=== PATIENT | female | born 1955 | race Caucasian/White ===

== ENCOUNTER 2019-09-05 12:18 | Inpatient (IN) | payer BC ==
[~2019-09-05] VITALS: Ht 162.6 cm; Wt 76.4 kg
[2019-09-05] MEDS ORDERED: BISACODYL 10 MG SUPP PR PRN (13:00)
[2019-09-05] MEDS ORDERED: ONDANSETRON ODT 4 MG PO PRN (13:00)
[2019-09-05 13:57] VITALS: BP 145/80
[2019-09-05] MEDS: SERTRALINE 50MG TABLET PO SCH (15:37)
[2019-09-05 16:48] LABS: ANION GAP 9 mmol/L (5-15); CALCIUM 9.9 mg/dL (8.5-10.1); CHLORIDE 104 mmol/L (98-107); CREATININE 1.19 mg/dL (0.55-1.02)
[2019-09-05 17:15] LABS: CHOL/HDL RATIO 2.9; FREE T4 (FREE THYROXINE) 2.13 ng/dL (0.76-1.46); LDL/HDL RATIO 1.4 (0.5-3.0)
[2019-09-05] MEDS: INSULIN LISPRO 100 UNITS/ML, PEN SQ-INSULIN SCH ×2 (17:17→21:11)
[2019-09-05 19:54] VITALS: BP 145/80
[2019-09-06 05:59] LABS: BASOPHILS # (AUTO) 0.02 x10^3/uL (0-0.1); BASOPHILS % (AUTO) 0 % (0-1); EOSINOPHILS # (AUTO) 0.09 x10^3/uL (0-0.4); EOSINOPHILS % (AUTO) 2 % (1-7); LYMPHOCYTES # (AUTO) 1.31 x10^3/uL (1-3.4); LYMPHOCYTES % (AUTO) 24 % (22-44); MD NO; MEAN CORPUSCULAR HEMOGLOBIN 31.2 pg (27.0-34.8); MEAN CORPUSCULAR VOLUME 94.5 fL (80-100); MEAN PLATELET VOLUME 9.5 fL (7.4-10.4); MONOCYTES # (AUTO) 0.43 x10^3/uL (0.2-0.8); MONOCYTES % (AUTO) 8 % (2-9); NEUTROPHILS % (AUTO) 66 % (42-75); PLATELET COUNT 167 x10^3/uL (130-400); RED BLOOD COUNT 4.46 x10^6/uL (3.82-5.3)
[2019-09-06 06:04] LABS: ANION GAP 5 mmol/L (5-15); CALCIUM 9.7 mg/dL (8.5-10.1); CHLORIDE 106 mmol/L (98-107)
[2019-09-06] MEDS: ASPIRIN 81 MG TABLET EC PO SCH (06:04)
[2019-09-06 07:37] VITALS: BP 179/76
[2019-09-06] MEDS: INSULIN LISPRO 100 UNITS/ML, PEN SQ-INSULIN SCH ×4 (08:03→21:01)
[2019-09-06] MEDS: SERTRALINE 50MG TABLET PO SCH (08:24)
[2019-09-06] MEDS ORDERED: GABA-826 PO (18:48)
[2019-09-06] MEDS ORDERED: CLON2TAB9 PO (18:48)
[2019-09-06 19:15] VITALS: BP 151/85
[2019-09-07 00:17] LABS: MICROSCOPIC AUTO
[2019-09-07 00:19] LABS: CULTURE INDICATED? YES
[2019-09-07] MEDS: ASPIRIN 81 MG TABLET EC PO SCH (05:33)
[2019-09-07 07:00] VITALS: BP 160/82
[2019-09-07] MEDS: INSULIN LISPRO 100 UNITS/ML, PEN SQ-INSULIN SCH ×4 (07:40→20:39)
[2019-09-07] MEDS: SERTRALINE 50MG TABLET PO SCH (08:15)
[2019-09-07 19:15] VITALS: BP 169/81
[2019-09-08] MEDS: ASPIRIN 81 MG TABLET EC PO SCH (06:18)
[2019-09-08] MEDS: INSULIN LISPRO 100 UNITS/ML, PEN SQ-INSULIN SCH ×4 (07:37→22:19)
[2019-09-08 07:42] VITALS: BP 180/84
[2019-09-08 07:57] VITALS: BP 176/81
[2019-09-08] MEDS ORDERED: GUAN3TAB3 PO (08:20)
[2019-09-08] MEDS ORDERED: SIMV20TA3 PO (08:20)
[2019-09-08] MEDS ORDERED: DIVA500T17 PO (08:20)
[2019-09-08] MEDS ORDERED: LEVO125T PO (08:20)
[2019-09-08] MEDS ORDERED: OMEP20CA14 PO (08:20)
[2019-09-08] MEDS ORDERED: CARV6.25 PO (08:20)
[2019-09-08] MEDS ORDERED: RISP1TAB3 PO (08:20)
[2019-09-08] MEDS ORDERED: LISI40TA PO (08:20)
[2019-09-08] MEDS ORDERED: CLOP75TA PO (08:20)
[2019-09-08] MEDS ORDERED: AMLO10TA8 PO (08:20)
[2019-09-08] MEDS ORDERED: LANS30CA PO (08:20)
[2019-09-08] MEDS: SERTRALINE 50MG TABLET PO SCH (09:03)
[2019-09-08] MEDS: CARVEDILOL 6.25 MG TABLET PO SCH ×2 (09:03→17:39)
[2019-09-08] MEDS: CLOPIDOGREL 75 MG TABLET PO SCH (09:04)
[2019-09-08] MEDS: LISINOPRIL 20 MG TABLET PO SCH (09:04)
[2019-09-08 11:30] VITALS: BP 128/73
[2019-09-08] MEDS ORDERED: LORazepam 1MG TABLET ONE ×2 (17:31→17:34)
[2019-09-08 17:41] VITALS: BP 160/85
[2019-09-08] MEDS ORDERED: LORazepam 1MG TABLET PO ONE (18:00)
[2019-09-08 19:32] VITALS: BP 152/77
[2019-09-08 19:48] VITALS: BP 161/72
[2019-09-08] MEDS ORDERED: RISPERIDONE 1 MG TABLET PO SCH (21:00)
[2019-09-08] MEDS: DIVALPROEX 500 MG TAB.ER.24H PO SCH (22:17)
[2019-09-08] MEDS: SIMVASTATIN 20 MG TABLET PO SCH (22:17)
[2019-09-08] MEDS: INSULIN GLARGINE 100 UNITS/ML, PEN SQ-INSULIN SCH (22:19)
[2019-09-09] MEDS: ASPIRIN 81 MG TABLET EC PO SCH (06:06)
[2019-09-09] MEDS: LEVOTHYROXINE 125 MCG TABLET PO SCH (06:06)
[2019-09-09 07:33] VITALS: BP 180/74
[2019-09-09] MEDS: INSULIN LISPRO 100 UNITS/ML, PEN SQ-INSULIN SCH ×4 (07:47→20:07)
[2019-09-09] MEDS: CARVEDILOL 6.25 MG TABLET PO SCH ×2 (08:23→17:12)
[2019-09-09] MEDS: CLOPIDOGREL 75 MG TABLET PO SCH (08:23)
[2019-09-09] MEDS: SERTRALINE 50MG TABLET PO SCH (08:24)
[2019-09-09] MEDS: LISINOPRIL 20 MG TABLET PO SCH (08:24)
[2019-09-09 16:58] VITALS: BP 135/83
[2019-09-09 19:42] VITALS: BP 149/79
[2019-09-09] MEDS: INSULIN GLARGINE 100 UNITS/ML, PEN SQ-INSULIN SCH (20:08)
[2019-09-09] MEDS: SIMVASTATIN 20 MG TABLET PO SCH (20:57)
[2019-09-09] MEDS: DIVALPROEX 500 MG TAB.ER.24H PO SCH (20:57)
[2019-09-09] MEDS: RISPERIDONE 1 MG TABLET PO SCH (20:57)
[2019-09-10] MEDS: ASPIRIN 81 MG TABLET EC PO SCH (06:07)
[2019-09-10] MEDS: LEVOTHYROXINE 125 MCG TABLET PO SCH (06:07)
[2019-09-10] MEDS: INSULIN LISPRO 100 UNITS/ML, PEN SQ-INSULIN SCH ×4 (07:00→21:30)
[2019-09-10 07:24] VITALS: BP 140/77
[2019-09-10] MEDS: LISINOPRIL 20 MG TABLET PO SCH (08:40)
[2019-09-10] MEDS: CARVEDILOL 6.25 MG TABLET PO SCH ×2 (08:40→17:34)
[2019-09-10] MEDS: SERTRALINE 50MG TABLET PO SCH (08:40)
[2019-09-10] MEDS: CLOPIDOGREL 75 MG TABLET PO SCH (08:40)
[2019-09-10 17:30] VITALS: BP 154/73
[2019-09-10 19:15] VITALS: BP 121/75
[2019-09-10] MEDS: DIVALPROEX 500 MG TAB.ER.24H PO SCH (21:27)
[2019-09-10] MEDS: RISPERIDONE 1 MG TABLET PO SCH (21:28)
[2019-09-10] MEDS: SIMVASTATIN 20 MG TABLET PO SCH (21:29)
[2019-09-10] MEDS: INSULIN GLARGINE 100 UNITS/ML, PEN SQ-INSULIN SCH (21:32)
[2019-09-11] MEDS: ASPIRIN 81 MG TABLET EC PO SCH (05:40)
[2019-09-11] MEDS: LEVOTHYROXINE 125 MCG TABLET PO SCH (05:40)
[2019-09-11 07:18] VITALS: BP 154/66
[2019-09-11] MEDS: INSULIN LISPRO 100 UNITS/ML, PEN SQ-INSULIN SCH ×4 (08:35→21:35)
[2019-09-11] MEDS: CARVEDILOL 6.25 MG TABLET PO SCH ×2 (08:37→17:23)
[2019-09-11] MEDS: SERTRALINE 50MG TABLET PO SCH ×2 (08:37→08:43)
[2019-09-11] MEDS: CLOPIDOGREL 75 MG TABLET PO SCH (08:38)
[2019-09-11] MEDS: LISINOPRIL 20 MG TABLET PO SCH (08:38)
[2019-09-11 17:22] VITALS: BP 127/80
[2019-09-11 19:43] VITALS: BP 132/80
[2019-09-11] MEDS: DIVALPROEX 500 MG TAB.ER.24H PO SCH (21:33)
[2019-09-11] MEDS: SIMVASTATIN 20 MG TABLET PO SCH (21:33)
[2019-09-11] MEDS: RISPERIDONE 1 MG TABLET PO SCH (21:33)
[2019-09-11] MEDS: INSULIN GLARGINE 100 UNITS/ML, PEN SQ-INSULIN SCH (21:35)
[2019-09-12] MEDS: LEVOTHYROXINE 125 MCG TABLET PO SCH (05:39)
[2019-09-12] MEDS: ASPIRIN 81 MG TABLET EC PO SCH (05:39)
[2019-09-12 07:48] VITALS: BP 138/75
[2019-09-12] MEDS: INSULIN LISPRO 100 UNITS/ML, PEN SQ-INSULIN SCH ×4 (07:55→20:48)
[2019-09-12] MEDS: CLOPIDOGREL 75 MG TABLET PO SCH (08:09)
[2019-09-12] MEDS: CARVEDILOL 6.25 MG TABLET PO SCH ×2 (08:09→17:19)
[2019-09-12] MEDS: LISINOPRIL 20 MG TABLET PO SCH (08:10)
[2019-09-12] MEDS: SERTRALINE 50MG TABLET PO SCH (08:10)
[2019-09-12 20:06] VITALS: BP 138/79
[2019-09-12] MEDS: ACETAMINOPHEN 325 MG TABLET PO PRN (20:45)
[2019-09-12] MEDS: RISPERIDONE 1 MG TABLET PO SCH (20:46)
[2019-09-12] MEDS: DIVALPROEX 500 MG TAB.ER.24H PO SCH (20:46)
[2019-09-12] MEDS: SIMVASTATIN 20 MG TABLET PO SCH (20:46)
[2019-09-12] MEDS: INSULIN GLARGINE 100 UNITS/ML, PEN SQ-INSULIN SCH (20:47)
[2019-09-12] MEDS: DOCUSATE 100 MG CAPSULE PO PRN (20:47)
[2019-09-13] MEDS: LEVOTHYROXINE 125 MCG TABLET PO SCH (06:12)
[2019-09-13] MEDS: ASPIRIN 81 MG TABLET EC PO SCH (06:12)
[2019-09-13 07:35] VITALS: BP 172/74
[2019-09-13] MEDS: SERTRALINE 50MG TABLET PO SCH ×2 (08:21→08:25)
[2019-09-13] MEDS: LISINOPRIL 20 MG TABLET PO SCH (08:22)
[2019-09-13] MEDS: CLOPIDOGREL 75 MG TABLET PO SCH (08:22)
[2019-09-13] MEDS: CARVEDILOL 6.25 MG TABLET PO SCH ×2 (08:23→18:11)
[2019-09-13] MEDS: INSULIN LISPRO 100 UNITS/ML, PEN SQ-INSULIN SCH ×4 (08:25→21:03)
[2019-09-13] MEDS ORDERED: NITROFURANTOIN (MACROBID) 100 MG CAPSULE ONE (14:15)
[2019-09-13] MEDS: NITROFURANTOIN (MACROBID) 100 MG CAPSULE PO SCH ×2 (14:22→21:02)
[2019-09-13 18:09] VITALS: BP 160/80
[2019-09-13 19:53] VITALS: BP 140/88
[2019-09-13] MEDS ORDERED: INSULIN GLARGINE 100 UNITS/ML, PEN SQ-INSULIN SCH (21:00)
[2019-09-13] MEDS: SIMVASTATIN 20 MG TABLET PO SCH (21:02)
[2019-09-13] MEDS: DIVALPROEX 500 MG TAB.ER.24H PO SCH (21:02)
[2019-09-13] MEDS: RISPERIDONE 1 MG TABLET PO SCH (21:02)
[2019-09-14] MEDS: LEVOTHYROXINE 125 MCG TABLET PO SCH (05:13)
[2019-09-14] MEDS: ASPIRIN 81 MG TABLET EC PO SCH (05:13)
[2019-09-14 07:21] VITALS: BP 176/85
[2019-09-14] MEDS: CLOPIDOGREL 75 MG TABLET PO SCH (08:14)
[2019-09-14] MEDS: LISINOPRIL 20 MG TABLET PO SCH (08:15)
[2019-09-14] MEDS: CARVEDILOL 6.25 MG TABLET PO SCH ×2 (08:15→17:39)
[2019-09-14] MEDS: NITROFURANTOIN (MACROBID) 100 MG CAPSULE PO SCH ×2 (08:16→20:29)
[2019-09-14] MEDS: INSULIN LISPRO 100 UNITS/ML, PEN SQ-INSULIN SCH ×4 (08:17→20:51)
[2019-09-14] MEDS: SERTRALINE 50MG TABLET PO SCH (08:20)
[2019-09-14] MEDS: POLYETHYLENE GLYCOL 17 GM PACKET PO PRN (10:09)
[2019-09-14] MEDS: LACTOBACILLUS CHEW TABLET PO SCH ×2 (15:00→20:29)
[2019-09-14 19:00] VITALS: BP 143/83
[2019-09-14] MEDS: SIMVASTATIN 20 MG TABLET PO SCH (20:30)
[2019-09-14] MEDS: RISPERIDONE 1 MG TABLET PO SCH (20:30)
[2019-09-14] MEDS: INSULIN GLARGINE 100 UNITS/ML, PEN SQ-INSULIN SCH (20:51)
[2019-09-14] MEDS ORDERED: DIVALPROEX 500 MG TAB.ER.24H PO SCH (21:00)
[2019-09-15] MEDS: ASPIRIN 81 MG TABLET EC PO SCH (06:36)
[2019-09-15] MEDS: CARVEDILOL 6.25 MG TABLET PO SCH ×2 (06:37→17:52)
[2019-09-15] MEDS: LEVOTHYROXINE 125 MCG TABLET PO SCH (06:37)
[2019-09-15 06:53] LABS: ALBUMIN 3.2 g/dL (3.4-5.0); BILIRUBIN, DIRECT 0.1 mg/dL (0.1-0.2)
[2019-09-15 06:57] LABS: BILIRUBIN,INDIRECT 0.2 mg/dL (0.0-2.0); BILIRUBIN,TOTAL 0.3 mg/dL (0.2-1.0); TOTAL PROTEIN 6.6 g/dL (6.4-8.2)
[2019-09-15] MEDS: INSULIN LISPRO 100 UNITS/ML, PEN SQ-INSULIN SCH ×4 (07:00→20:50)
[2019-09-15 07:09] VITALS: BP 138/60
[2019-09-15] MEDS: LACTOBACILLUS CHEW TABLET PO SCH ×3 (10:37→20:47)
[2019-09-15] MEDS: LISINOPRIL 20 MG TABLET PO SCH (10:37)
[2019-09-15] MEDS: NITROFURANTOIN (MACROBID) 100 MG CAPSULE PO SCH ×2 (10:37→20:47)
[2019-09-15] MEDS: SERTRALINE 50MG TABLET PO SCH (10:38)
[2019-09-15 10:51] VITALS: BP 180/93
[2019-09-15] MEDS: CLOPIDOGREL 75 MG TABLET PO SCH (10:52)
[2019-09-15] MEDS: ACETAMINOPHEN 325 MG TABLET PO PRN ×2 (11:00→20:47)
[2019-09-15] MEDS: DOCUSATE 100 MG CAPSULE PO PRN (11:00)
[2019-09-15] MEDS: CALCIUM CARBONATE 500 MG TAB.CHEW PO PRN ×2 (15:23→20:46)
[2019-09-15 17:51] VITALS: BP 147/77
[2019-09-15 19:12] VITALS: BP 174/89
[2019-09-15] MEDS: SIMVASTATIN 20 MG TABLET PO SCH (20:47)
[2019-09-15] MEDS: RISPERIDONE 1 MG TABLET PO SCH (20:47)
[2019-09-15] MEDS: INSULIN GLARGINE 100 UNITS/ML, PEN SQ-INSULIN SCH (20:49)
[2019-09-16] MEDS: LEVOTHYROXINE 125 MCG TABLET PO SCH (05:21)
[2019-09-16] MEDS: ASPIRIN 81 MG TABLET EC PO SCH (05:21)
[2019-09-16] MEDS: INSULIN LISPRO 100 UNITS/ML, PEN SQ-INSULIN SCH ×4 (07:00→21:27)
[2019-09-16 07:32] VITALS: BP 156/84
[2019-09-16] MEDS: ACETAMINOPHEN 325 MG TABLET PO PRN (08:44)
[2019-09-16] MEDS: SERTRALINE 50MG TABLET PO SCH (08:44)
[2019-09-16] MEDS: LACTOBACILLUS CHEW TABLET PO SCH ×3 (08:44→21:25)
[2019-09-16] MEDS: CARVEDILOL 6.25 MG TABLET PO SCH ×2 (08:44→17:22)
[2019-09-16] MEDS: CLOPIDOGREL 75 MG TABLET PO SCH (08:44)
[2019-09-16] MEDS: NITROFURANTOIN (MACROBID) 100 MG CAPSULE PO SCH ×2 (08:45→21:25)
[2019-09-16] MEDS: LISINOPRIL 20 MG TABLET PO SCH (08:45)
[2019-09-16 17:22] VITALS: BP 178/91
[2019-09-16 19:33] VITALS: BP 156/82
[2019-09-16] MEDS: SIMVASTATIN 20 MG TABLET PO SCH (21:25)
[2019-09-16] MEDS: RISPERIDONE 1 MG TABLET PO SCH (21:25)
[2019-09-16] MEDS: INSULIN GLARGINE 100 UNITS/ML, PEN SQ-INSULIN SCH (21:26)
[2019-09-17] MEDS: ASPIRIN 81 MG TABLET EC PO SCH (04:57)
[2019-09-17] MEDS: ACETAMINOPHEN 325 MG TABLET PO PRN ×2 (04:57→20:49)
[2019-09-17] MEDS: LEVOTHYROXINE 125 MCG TABLET PO SCH (04:57)
[2019-09-17] MEDS: CALCIUM CARBONATE 500 MG TAB.CHEW PO PRN ×3 (05:40→18:29)
[2019-09-17] MEDS: INSULIN LISPRO 100 UNITS/ML, PEN SQ-INSULIN SCH ×4 (07:00→21:00)
[2019-09-17 07:48] VITALS: BP 179/76
[2019-09-17] MEDS: DOCUSATE 100 MG CAPSULE PO PRN (08:59)
[2019-09-17] MEDS: LISINOPRIL 20 MG TABLET PO SCH (08:59)
[2019-09-17] MEDS: CARVEDILOL 6.25 MG TABLET PO SCH ×2 (08:59→16:54)
[2019-09-17] MEDS: LACTOBACILLUS CHEW TABLET PO SCH ×3 (08:59→20:31)
[2019-09-17] MEDS: CLOPIDOGREL 75 MG TABLET PO SCH (08:59)
[2019-09-17] MEDS: NITROFURANTOIN (MACROBID) 100 MG CAPSULE PO SCH ×2 (08:59→20:31)
[2019-09-17] MEDS: SERTRALINE 50MG TABLET PO SCH (09:00)
[2019-09-17] MEDS ORDERED: DEXTROSE 4 GM TAB.CHEW PO PRN (13:00)
[2019-09-17] MEDS ORDERED: GLUCAGON 1 MG IM PRN (13:00)
[2019-09-17] MEDS ORDERED: DEXTROSE 50%, 50ML SYRINGE IVPush PRN (13:00)
[2019-09-17] MEDS ORDERED: INSULIN GLARGINE 100 UNITS/ML, PEN SQ-INSULIN SCH ×3 (13:00→21:00)
[2019-09-17 13:20] LABS: BASOPHILS # (AUTO) 0.01 x10^3/uL (0-0.1); BASOPHILS % (AUTO) 0 % (0-1); EOSINOPHILS # (AUTO) 0.05 x10^3/uL (0-0.4); EOSINOPHILS % (AUTO) 1 % (1-7); LYMPHOCYTES # (AUTO) 1.09 x10^3/uL (1-3.4); LYMPHOCYTES % (AUTO) 17 % (22-44); MD NO; MEAN CORPUSCULAR HEMOGLOBIN 31.3 pg (27.0-34.8); MEAN CORPUSCULAR HGB CONC 32.9 g/dL (32.4-35.8); MEAN CORPUSCULAR VOLUME 95.1 fL (80-100); MEAN PLATELET VOLUME 10.2 fL (7.4-10.4); MONOCYTES # (AUTO) 0.69 x10^3/uL (0.2-0.8); MONOCYTES % (AUTO) 11 % (2-9); NEUTROPHILS % (AUTO) 71 % (42-75); PLATELET COUNT 131 x10^3/uL (130-400); RED BLOOD COUNT 4.15 x10^6/uL (3.82-5.3); RED CELL DISTRIBUTION WIDTH 12.8 % (9.6-15.2)
[2019-09-17 13:29] LABS: ALANINE AMINOTRANSFERASE 28 U/L (12-78)
[2019-09-17 13:31] LABS: ALBUMIN 3.3 g/dL (3.4-5.0); ANION GAP 8 mmol/L (5-15); CALCIUM 9.1 mg/dL (8.5-10.1); CHLORIDE 100 mmol/L (98-107); CREATININE 0.95 mg/dL (0.55-1.02)
[2019-09-17 13:32] LABS: ALKALINE PHOSPHATASE 73 U/L (45-117); BILIRUBIN,TOTAL 0.4 mg/dL (0.2-1.0)
[2019-09-17] MEDS ORDERED: INSULIN GLARGINE 100 UNITS/ML, PEN SQ-INSULIN ONE (14:30)
[2019-09-17 16:51] VITALS: BP 169/88
[2019-09-17 19:40] VITALS: BP 164/84
[2019-09-17] MEDS: RISPERIDONE 1 MG TABLET PO SCH (20:31)
[2019-09-17] MEDS: SIMVASTATIN 20 MG TABLET PO SCH (20:40)
[2019-09-17] MEDS: SODIUM CHLORIDE FLUSH 10ML SYR IVF SCH (21:00)
[2019-09-18] MEDS: ASPIRIN 81 MG TABLET EC PO SCH (05:24)
[2019-09-18] MEDS: LEVOTHYROXINE 125 MCG TABLET PO SCH (05:24)
[2019-09-18 06:30] LABS: ALBUMIN 3.4 g/dL (3.4-5.0); ANION GAP 6 mmol/L (5-15); CALCIUM 9.5 mg/dL (8.5-10.1); CHLORIDE 103 mmol/L (98-107)
[2019-09-18 06:35] LABS: ALANINE AMINOTRANSFERASE 29 U/L (12-78); ALKALINE PHOSPHATASE 68 U/L (45-117); BILIRUBIN,TOTAL 0.4 mg/dL (0.2-1.0); CREATININE 0.86 mg/dL (0.55-1.02); TOTAL PROTEIN 6.7 g/dL (6.4-8.2)
[2019-09-18 07:30] VITALS: BP 161/83
[2019-09-18] MEDS: INSULIN LISPRO 100 UNITS/ML, PEN SQ-INSULIN SCH ×4 (08:04→23:03)
[2019-09-18] MEDS: CLOPIDOGREL 75 MG TABLET PO SCH (08:04)
[2019-09-18] MEDS: LACTOBACILLUS CHEW TABLET PO SCH ×3 (08:05→20:00)
[2019-09-18] MEDS: LISINOPRIL 20 MG TABLET PO SCH (08:05)
[2019-09-18] MEDS: CARVEDILOL 6.25 MG TABLET PO SCH ×2 (08:05→16:52)
[2019-09-18] MEDS: SERTRALINE 50MG TABLET PO SCH (08:05)
[2019-09-18] MEDS: SODIUM CHLORIDE FLUSH 10ML SYR IVF SCH ×2 (08:11→21:00)
[2019-09-18] MEDS: HYDROCHLOROTHIAZIDE 25 MG TABLET PO SCH (08:55)
[2019-09-18] MEDS: CALCIUM CARBONATE 500 MG TAB.CHEW PO PRN (09:00)
[2019-09-18] MEDS ORDERED: INSULIN GLARGINE 100 UNITS/ML, PEN SQ-INSULIN SCH ×2 (09:00→21:00)
[2019-09-18 19:36] VITALS: BP_SYST 166; BP_SYST 188; BP_DIAS 83
[2019-09-18] MEDS: SIMVASTATIN 20 MG TABLET PO SCH (20:00)
[2019-09-18] MEDS: RISPERIDONE 1 MG TABLET PO SCH (20:00)
[2019-09-18 21:48] VITALS: BP 130/72
[2019-09-19] MEDS: LEVOTHYROXINE 125 MCG TABLET PO SCH (05:20)
[2019-09-19] MEDS: ASPIRIN 81 MG TABLET EC PO SCH (05:20)
[2019-09-19] MEDS: INSULIN LISPRO 100 UNITS/ML, PEN SQ-INSULIN SCH ×4 (07:23→20:45)
[2019-09-19 07:28] VITALS: BP 157/82
[2019-09-19] MEDS: LISINOPRIL 20 MG TABLET PO SCH (08:39)
[2019-09-19] MEDS: CARVEDILOL 12.5 MG TABLET PO SCH ×2 (08:39→16:41)
[2019-09-19] MEDS: SERTRALINE 50MG TABLET PO SCH (08:39)
[2019-09-19] MEDS: CLOPIDOGREL 75 MG TABLET PO SCH (08:40)
[2019-09-19] MEDS: LACTOBACILLUS CHEW TABLET PO SCH ×3 (08:40→20:38)
[2019-09-19] MEDS: HYDROCHLOROTHIAZIDE 25 MG TABLET PO SCH (08:40)
[2019-09-19] MEDS: SODIUM CHLORIDE FLUSH 10ML SYR IVF SCH ×2 (08:48→20:46)
[2019-09-19] MEDS ORDERED: INSULIN GLARGINE 100 UNITS/ML, PEN SQ-INSULIN SCH ×3 (09:00→21:00)
[2019-09-19] MEDS: INSULIN GLARGINE 100 UNITS/ML, PEN SQ-INSULIN SCH (09:51)
[2019-09-19] MEDS: CALCIUM CARBONATE 500 MG TAB.CHEW PO PRN (10:23)
[2019-09-19 19:23] VITALS: BP 139/72
[2019-09-19] MEDS: SIMVASTATIN 20 MG TABLET PO SCH (20:38)
[2019-09-19] MEDS: RISPERIDONE 1 MG TABLET PO SCH (20:38)
[2019-09-20 02:05] VITALS: BP 144/86
[2019-09-20] MEDS: ASPIRIN 81 MG TABLET EC PO SCH (05:37)
[2019-09-20] MEDS: LEVOTHYROXINE 125 MCG TABLET PO SCH (05:37)
[2019-09-20 07:30] VITALS: BP 162/84
[2019-09-20] MEDS: INSULIN LISPRO 100 UNITS/ML, PEN SQ-INSULIN SCH ×4 (07:47→21:00)
[2019-09-20] MEDS: HYDROCHLOROTHIAZIDE 25 MG TABLET PO SCH (08:59)
[2019-09-20] MEDS: LISINOPRIL 20 MG TABLET PO SCH (08:59)
[2019-09-20] MEDS: CLOPIDOGREL 75 MG TABLET PO SCH (08:59)
[2019-09-20] MEDS: LACTOBACILLUS CHEW TABLET PO SCH ×3 (08:59→20:07)
[2019-09-20] MEDS: SERTRALINE 50MG TABLET PO SCH (08:59)
[2019-09-20] MEDS ORDERED: INSULIN GLARGINE 100 UNITS/ML, PEN SQ-INSULIN SCH ×2 (09:00→21:00)
[2019-09-20] MEDS: CARVEDILOL 12.5 MG TABLET PO SCH ×2 (09:00→16:39)
[2019-09-20] MEDS: SODIUM CHLORIDE FLUSH 10ML SYR IVF SCH ×2 (09:00→21:00)
[2019-09-20] MEDS: INSULIN GLARGINE 100 UNITS/ML, PEN SQ-INSULIN SCH (09:02)
[2019-09-20] MEDS: CALCIUM CARBONATE 500 MG TAB.CHEW PO PRN ×3 (12:21→20:07)
[2019-09-20 19:43] VITALS: BP 151/81
[2019-09-20] MEDS: SIMVASTATIN 20 MG TABLET PO SCH (20:07)
[2019-09-20] MEDS: RISPERIDONE 1 MG TABLET PO SCH (20:07)
[2019-09-20] MEDS: ACETAMINOPHEN 325 MG TABLET PO PRN (22:28)
[2019-09-21] MEDS: CALCIUM CARBONATE 500 MG TAB.CHEW PO PRN ×4 (03:46→23:53)
[2019-09-21] MEDS: ASPIRIN 81 MG TABLET EC PO SCH (04:45)
[2019-09-21] MEDS: LEVOTHYROXINE 125 MCG TABLET PO SCH (04:45)
[2019-09-21 07:53] VITALS: BP 140/82
[2019-09-21] MEDS: CLOPIDOGREL 75 MG TABLET PO SCH (08:17)
[2019-09-21] MEDS: LACTOBACILLUS CHEW TABLET PO SCH ×3 (08:17→20:14)
[2019-09-21] MEDS: SERTRALINE 50MG TABLET PO SCH (08:17)
[2019-09-21] MEDS: LISINOPRIL 20 MG TABLET PO SCH (08:17)
[2019-09-21] MEDS: CARVEDILOL 25 MG TABLET PO SCH ×2 (08:18→17:30)
[2019-09-21] MEDS: HYDROCHLOROTHIAZIDE 25 MG TABLET PO SCH (08:18)
[2019-09-21] MEDS: INSULIN GLARGINE 100 UNITS/ML, PEN SQ-INSULIN SCH ×2 (08:19→20:14)
[2019-09-21] MEDS: SODIUM CHLORIDE FLUSH 10ML SYR IVF SCH ×2 (09:00→21:00)
[2019-09-21] MEDS ORDERED: INSULIN GLARGINE 100 UNITS/ML, PEN SQ-INSULIN SCH ×2 (09:00→21:00)
[2019-09-21] MEDS: INSULIN LISPRO 100 UNITS/ML, PEN SQ-INSULIN SCH ×4 (09:05→20:58)
[2019-09-21 17:20] VITALS: BP 154/88
[2019-09-21 19:31] VITALS: BP 138/78
[2019-09-21] MEDS: SIMVASTATIN 20 MG TABLET PO SCH (20:15)
[2019-09-21] MEDS: RISPERIDONE 1 MG TABLET PO SCH (20:15)
[2019-09-21] MEDS: DOCUSATE 100 MG CAPSULE PO PRN (20:30)
[2019-09-22] MEDS: CALCIUM CARBONATE 500 MG TAB.CHEW PO PRN ×4 (04:44→20:15)
[2019-09-22] MEDS: ASPIRIN 81 MG TABLET EC PO SCH (04:44)
[2019-09-22] MEDS: LEVOTHYROXINE 125 MCG TABLET PO SCH (04:44)
[2019-09-22 07:41] VITALS: BP 163/80
[2019-09-22] MEDS: INSULIN LISPRO 100 UNITS/ML, PEN SQ-INSULIN SCH ×4 (08:06→19:52)
[2019-09-22] MEDS: SERTRALINE 50MG TABLET PO SCH (08:06)
[2019-09-22] MEDS: HYDROCHLOROTHIAZIDE 25 MG TABLET PO SCH (08:06)
[2019-09-22] MEDS: CARVEDILOL 25 MG TABLET PO SCH ×2 (08:06→17:15)
[2019-09-22] MEDS: CLOPIDOGREL 75 MG TABLET PO SCH (08:07)
[2019-09-22] MEDS: LACTOBACILLUS CHEW TABLET PO SCH ×3 (08:07→19:43)
[2019-09-22] MEDS: LISINOPRIL 20 MG TABLET PO SCH (08:07)
[2019-09-22] MEDS: INSULIN GLARGINE 100 UNITS/ML, PEN SQ-INSULIN SCH ×2 (08:08→19:53)
[2019-09-22] MEDS: SODIUM CHLORIDE FLUSH 10ML SYR IVF SCH ×2 (08:25→19:53)
[2019-09-22 17:05] VITALS: BP 158/75
[2019-09-22 19:12] VITALS: BP 150/74
[2019-09-22] MEDS: SIMVASTATIN 20 MG TABLET PO SCH (19:44)
[2019-09-22] MEDS: RISPERIDONE 1 MG TABLET PO SCH (19:44)
[2019-09-23] MEDS: CALCIUM CARBONATE 500 MG TAB.CHEW PO PRN ×4 (04:38→20:24)
[2019-09-23] MEDS: LEVOTHYROXINE 125 MCG TABLET PO SCH (05:58)
[2019-09-23] MEDS: ASPIRIN 81 MG TABLET EC PO SCH (05:58)
[2019-09-23] MEDS: INSULIN LISPRO 100 UNITS/ML, PEN SQ-INSULIN SCH ×4 (07:00→20:14)
[2019-09-23 07:20] VITALS: BP 160/74
[2019-09-23] MEDS: CLOPIDOGREL 75 MG TABLET PO SCH (08:26)
[2019-09-23] MEDS: POLYETHYLENE GLYCOL 17 GM PACKET PO PRN (08:26)
[2019-09-23] MEDS: CARVEDILOL 25 MG TABLET PO SCH ×2 (08:27→18:15)
[2019-09-23] MEDS: LACTOBACILLUS CHEW TABLET PO SCH ×3 (08:27→20:01)
[2019-09-23] MEDS: SERTRALINE 50MG TABLET PO SCH (08:27)
[2019-09-23] MEDS: LISINOPRIL 20 MG TABLET PO SCH (08:27)
[2019-09-23] MEDS: HYDROCHLOROTHIAZIDE 25 MG TABLET PO SCH (08:28)
[2019-09-23] MEDS: SODIUM CHLORIDE FLUSH 10ML SYR IVF SCH (08:28)
[2019-09-23] MEDS ORDERED: INSULIN GLARGINE 100 UNITS/ML, PEN SQ-INSULIN SCH ×2 (09:00)
[2019-09-23 15:46] VITALS: BP 137/77
[2019-09-23 18:00] VITALS: BP 144/75
[2019-09-23 19:32] VITALS: BP 146/80
[2019-09-23] MEDS: RISPERIDONE 1 MG TABLET PO SCH (20:00)
[2019-09-23] MEDS: SIMVASTATIN 20 MG TABLET PO SCH (20:01)
[2019-09-23] MEDS: INSULIN GLARGINE 100 UNITS/ML, PEN SQ-INSULIN SCH (20:20)
[2019-09-24] MEDS: CALCIUM CARBONATE 500 MG TAB.CHEW PO PRN ×4 (00:55→21:34)
[2019-09-24] MEDS: LEVOTHYROXINE 125 MCG TABLET PO SCH (06:23)
[2019-09-24] MEDS: ASPIRIN 81 MG TABLET EC PO SCH (06:23)
[2019-09-24] MEDS: INSULIN LISPRO 100 UNITS/ML, PEN SQ-INSULIN SCH ×4 (07:00→20:52)
[2019-09-24 07:20] VITALS: BP 152/80
[2019-09-24] MEDS: SERTRALINE 50MG TABLET PO SCH (08:41)
[2019-09-24] MEDS: LACTOBACILLUS CHEW TABLET PO SCH ×3 (08:43→21:35)
[2019-09-24] MEDS: LISINOPRIL 20 MG TABLET PO SCH (08:44)
[2019-09-24] MEDS: CLOPIDOGREL 75 MG TABLET PO SCH (08:44)
[2019-09-24] MEDS: CARVEDILOL 25 MG TABLET PO SCH ×2 (08:44→16:59)
[2019-09-24] MEDS: HYDROCHLOROTHIAZIDE 25 MG TABLET PO SCH (08:44)
[2019-09-24] MEDS: ACETAMINOPHEN 325 MG TABLET PO PRN (08:44)
[2019-09-24] MEDS ORDERED: INSULIN GLARGINE 100 UNITS/ML, PEN SQ-INSULIN SCH ×2 (09:00)
[2019-09-24] MEDS ORDERED: INSU100I13 SQ-INSULIN ×2 (15:58)
[2019-09-24] MEDS ORDERED: SERT50TA28 PO (15:58)
[2019-09-24] MEDS ORDERED: ACID1TAB7 PO (15:58)
[2019-09-24] MEDS ORDERED: ASPI81TA45 PO (15:58)
[2019-09-24] MEDS ORDERED: RISP1TAB45 PO (15:58)
[2019-09-24 16:24] VITALS: BP 140/78
[2019-09-24 19:47] VITALS: BP 113/71
[2019-09-24] MEDS: INSULIN GLARGINE 100 UNITS/ML, PEN SQ-INSULIN SCH (20:55)
[2019-09-24] MEDS: RISPERIDONE 1 MG TABLET PO SCH (21:34)
[2019-09-24] MEDS: SIMVASTATIN 20 MG TABLET PO SCH (21:35)
[2019-09-25] MEDS: CALCIUM CARBONATE 500 MG TAB.CHEW PO PRN (04:47)
[2019-09-25] MEDS: LEVOTHYROXINE 125 MCG TABLET PO SCH (05:29)
[2019-09-25] MEDS: ACETAMINOPHEN 325 MG TABLET PO PRN (05:29)
[2019-09-25] MEDS: ASPIRIN 81 MG TABLET EC PO SCH (05:29)
[2019-09-25] MEDS: INSULIN LISPRO 100 UNITS/ML, PEN SQ-INSULIN SCH (07:00)
[2019-09-25 07:25] VITALS: BP 158/82
[2019-09-25] MEDS: CARVEDILOL 25 MG TABLET PO SCH (08:12)
[2019-09-25] MEDS: LACTOBACILLUS CHEW TABLET PO SCH (08:13)
[2019-09-25] MEDS: CLOPIDOGREL 75 MG TABLET PO SCH (08:13)
[2019-09-25] MEDS: LISINOPRIL 20 MG TABLET PO SCH (08:13)
[2019-09-25] MEDS: HYDROCHLOROTHIAZIDE 25 MG TABLET PO SCH (08:13)
[2019-09-25] MEDS: SERTRALINE 50MG TABLET PO SCH (08:14)
[2019-09-25] MEDS ORDERED: INSULIN GLARGINE 100 UNITS/ML, PEN SQ-INSULIN SCH ×2 (09:00)
== END 2019-09-25 09:25 | disposition home or self-care (01) | DRG 885 ==
LOC: 3E 13:41
PROVIDERS: ADMIT Psychiatry & Neurology Psychosomatic Medicine; ATTEND Psychiatry & Neurology Psychosomatic Medicine
DX: F31.9 Bipolar disorder, unspecified (principal); E03.9 Hypothyroidism, unspecified; E78.5 Hyperlipidemia, unspecified; F29 Unspecified psychosis not due to a substance or known physiological condition; F41.1 Generalized anxiety disorder; I10 Essential (primary) hypertension; E11.319 Type 2 diabetes mellitus with unspecified diabetic retinopathy without macular edema; K21.9 Gastro-esophageal reflux disease without esophagitis; I25.10 Atherosclerotic heart disease of native coronary artery without angina pectoris; E66.9 Obesity, unspecified; G47.30 Sleep apnea, unspecified; E11.649 Type 2 diabetes mellitus with hypoglycemia without coma; Z68.28 Body mass index [BMI] 28.0-28.9, adult; Z95.5 Presence of coronary angioplasty implant and graft; Z90.710 Acquired absence of both cervix and uterus; Z79.82 Long term (current) use of aspirin; Z79.4 Long term (current) use of insulin
CPT/HCPCS: 36415; 80048; 80053; 80061; 80076; 80164; 81001; 82607; 82947; 82962; 83036; 84439; 84443; 85025; 87086; 87186; 93005; Q0162; J1815